=== PATIENT | male | born 1990 | race Caucasian/White ===

== ENCOUNTER 2017-06-15 12:01 | Emergency (ER) | payer OTHER ==
[~2017-06-15] VITALS: Ht 180.3 cm; Wt 70.3 kg
[~2017-06-15 12:01] MED LIST: ALBU.083IS; ALBU.083IS IH; ALBU8HFA2 INH; ALBU90OI; ALBU90OI INH; ALBU90OI6 INH; ALBU90OI61; ALBU90OI61 INH; ALBUIS INH; ALBUTEROL UPDRAFT; AMOX500 PO; AMOX875 PO; ANTOXYBENA OT; AZIT250 PO; Amoxicillin500 MG PO; CEFD300 PO; CEPH500 PO; CIPR500 PO; CODACE30 PO; CODGUAEL PO; CYCL10 PO; DAY TIME COLD-1 EAC1; DOXY100 PO; FLUT110OIA INH; HYDACE5 PO; HYDACE5325 PO; HYDGUAL120 PO; HYDR1TAB94; IBUP600 PO; IBUP800 PO; METO10 PO; MULVITA; NAPR500 PO; NAPR550 PO; NEOPOLHYDS OT; Naprosyn500 MG PO; Norco 5-325 Ta1 EACH PO; ONDA4 PO; OXYACE5T PO; OXYACE7.5T PO; PENVK500 PO; PRED10 PO; PRED20 PO; PROM25 PO; PSEU120ER PO; Percocet 5-3251 EACH PO; Prednisone10 MG PO; RXHYDGUAS PO; RXOXYACE PO; RXPROM25 PO; SPACER IH; SULTRIDS PO; TOBR.3OPSO OP; TRAM50 PO; Ultram50 MG PO; Valium5 MG PO; Veetids 500500 MG PO; Ventolin Soln3 ML; Ventolin/Prove6.7 GM INH; Zofran4 MG PO
[2017-06-15] MEDS ORDERED: AZIT250 PO (13:12)
[2017-06-15] MEDS ORDERED: ALBU90OI INH (13:12)
[2017-06-15] MEDS ORDERED: Prednisone20 MG PO (13:12)
== END 2017-06-15 13:45 | disposition home or self-care (01) ==
LOC: ER 12:01
DX: R05 Cough (principal); J45.909 Unspecified asthma, uncomplicated; F17.200 Nicotine dependence, unspecified, uncomplicated; Z79.899 Other long term (current) drug therapy; Z79.52 Long term (current) use of systemic steroids; Z79.2 Long term (current) use of antibiotics
CPT/HCPCS: 94640; 99283

== ENCOUNTER 2017-06-17 18:41 | Emergency (ER) | payer OTHER ==
[~2017-06-17] VITALS: Ht 180.3 cm; Wt 70.3 kg
[~2017-06-17 18:41] MED LIST changes: +Prednisone20 MG PO
[2017-06-17] MEDS ORDERED: METCAR500 PO (21:28)
== END 2017-06-17 21:39 | disposition home or self-care (01) ==
LOC: ER 18:41
DX: J06.9 Acute upper respiratory infection, unspecified (principal); J98.01 Acute bronchospasm; R07.9 Chest pain, unspecified; M54.9 Dorsalgia, unspecified; F17.200 Nicotine dependence, unspecified, uncomplicated; J45.909 Unspecified asthma, uncomplicated; Z79.899 Other long term (current) drug therapy
CPT/HCPCS: 71046; 96372; 99283; J1885

== ENCOUNTER 2017-07-27 22:01 | Emergency (ER) | payer OTHER ==
[~2017-07-27] VITALS: Ht 180.3 cm; Wt 74.8 kg
[~2017-07-27 22:01] MED LIST changes: +METCAR500 PO
[2017-07-27] MEDS ORDERED: Silvadene20 GM TOP (23:56)
[2017-07-27] MEDS ORDERED: Roxicodone5 MG PO (23:56)
[2017-07-27] MEDS ORDERED: Zofran Odt4 MG PO (23:56)
== END 2017-07-28 01:21 | disposition home or self-care (01) ==
LOC: ER 22:01
DX: T23.251A Burn of second degree of right palm, initial encounter (principal); T23.241A Burn of second degree of multiple right fingers (nail), including thumb, initial encounter; J45.909 Unspecified asthma, uncomplicated; X08.8XXA Exposure to other specified smoke, fire and flames, initial encounter
CPT/HCPCS: 16020; 96374; 96375; 96376; 99284; J1170; J1885; J2405

== ENCOUNTER 2017-07-30 19:13 | Emergency (ER) | payer OTHER ==
[~2017-07-30] VITALS: Ht 180.3 cm; Wt 72.6 kg
[~2017-07-30 19:13] MED LIST changes: +Roxicodone5 MG PO; +Silvadene20 GM TOP; +Zofran Odt4 MG PO
[2017-07-30] MEDS ORDERED: IBUP800 PO (20:32)
[2017-07-30] MEDS ORDERED: Silvadene20 GM TOP (20:32)
[2017-07-30] MEDS ORDERED: Percocet 5-3251 EACH PO (20:32)
== END 2017-07-30 20:55 | disposition home or self-care (01) ==
LOC: ER 19:13
DX: T23.201D Burn of second degree of right hand, unspecified site, subsequent encounter (principal); J45.909 Unspecified asthma, uncomplicated; F17.200 Nicotine dependence, unspecified, uncomplicated; X08.8XXA Exposure to other specified smoke, fire and flames, initial encounter
CPT/HCPCS: 87070; 87077; 87147; 87186; 87205; 99283; J1885

== ENCOUNTER 2017-08-04 08:14 | Day surgery (SDC) | payer OTHER | END 2017-08-04 22:50 | disposition home or self-care (01) | LOC: WOUND 08:14 | DX: Z48.00 Encounter for change or removal of nonsurgical wound dressing (principal); T23.30 Burn of third degree of hand, unspecified site; F17.210 Nicotine dependence, cigarettes, uncomplicated; B95.62 Methicillin resistant Staphylococcus aureus infection as the cause of diseases classified elsewhere; E11.9 Type 2 diabetes mellitus without complications | CPT/HCPCS: G0463 ==

== ENCOUNTER 2018-03-10 12:54 | Emergency (ER) | payer OTHER ==
[~2018-03-10] VITALS: Ht 180.3 cm; Wt 68.0 kg
[2018-03-10 13:15] LABS: Source, Urine Clean Catch
[2018-03-10 13:28] LABS: Bilirubin, Urine Neg (Neg); Blood, Urine Neg (Neg); Glucose Qualitative, Urine Neg (Neg); Ketones, Urine 1+ (Neg); Leukocyte Esterase, Urine 1+ (Neg); Nitrite, Urine Neg (Neg); Protein, Urine 1+ (Neg); Specific Gravity, Urine 1.015 (1.003-1.022); Urobilinogen, Urine 1+ (Normal)
[2018-03-10 13:44] LABS: BASOPHILS ABSOLUTE AUTO 0.07 K/mm3 (0.00-0.23); BASOPHILS PERCENT AUTO 1 % (0-2); EOSINOPHILS ABSOLUTE AUTO 0.01 K/mm3 (0.00-0.68); EOSINOPHILS PERCENT AUTO 0 % (0-6); Hematocrit 49.9 % (37.0-53.0); Hemoglobin 17.5 g/dL (13.5-17.5); IMMATURE GRAN ABSOLUTE AUTO 0.03 K/mm3 (0.00-0.10); IMMATURE GRAN PERCENT AUTO 0 % (0-1); LYMPHOCYTES ABSOLUTE AUTO 1.76 K/mm3 (0.84-5.20); LYMPHOCYTES PERCENT AUTO 16 % (21-46); MONOCYTES ABSOLUTE AUTO 0.68 K/mm3 (0.16-1.47); MONOCYTES PERCENT AUTO 6 % (4-13); Mean Corpuscular HGB 31.7 pg (26.0-34.0); Mean Corpuscular HGB Conc 35.1 g/dL (31.5-36.5); Mean Corpuscular Volume 90 fL (80-100); Mean Platelet Volume 8.7 fL (9.1-12.4); NEUTROPHILS ABSOLUTE AUTO 8.28 K/mm3 (1.96-9.15); NEUTROPHILS PERCENT AUTO 76 % (41-73); Platelet Count 341 K/mm3 (150-400); RDW Standard Deviation 39.6 fL (35.1-46.3); Red Blood Cell Count 5.52 M/mm3 (4.30-5.90); White Blood Cell Count 10.83 K/mm3 (4.00-11.30)
[2018-03-10 13:44] LABS: Appearance, Urine Clear (Clear); Color, Urine Yellow (P-Yellow)
[2018-03-10 13:47] LABS: Bacteria Rare /hpf; Red Blood Cells, Urine Not Seen /hpf (0-2); Squamous Epithelial Cells Not Seen /hpf (Few); White Blood Cells, Urine 0-2 /hpf (0-5)
[2018-03-10 14:06] LABS: Alanine Aminotransfer (ALT/SGP 26 U/L (12-78); Albumin, Blood 4.6 g/dL (3.4-5.0); Albumin/Globulin Ratio 1.2 (0.8-1.8); Alk Phos 76 U/L (50-136); Anion Gap 8 mmol/L (6-16); Aspartate Aminotrans (AST/SGOT 34 U/L (12-37); Bilirubin, Total 0.5 mg/dL (0.1-1.0); Blood Urea Nitrogen 8 mg/dL (8-24); CO2, Blood 27 mmol/L (21-32); Calcium, Blood 9.2 mg/dL (8.5-10.1); Chloride, Blood 101 mmol/L (98-108); Creatinine, Blood 0.72 mg/dL (0.60-1.20); Glomerular Filtration Rate >60 (60-); Glucose, Blood 91 mg/dL (70-99); Potassium, Blood 4.2 mmol/L (3.5-5.5); Sodium, Blood 136 mmol/L (136-145); Total Protein, Blood 8.6 g/dL (6.4-8.2)
[2018-03-10] MEDS ORDERED: PROM25 PO (15:18)
== END 2018-03-10 15:28 | disposition home or self-care (01) ==
LOC: ER 12:54
PROVIDERS: Emergency Medicine
DX: R11.2 Nausea with vomiting, unspecified (principal); R19.7 Diarrhea, unspecified; R10.84 Generalized abdominal pain; J45.909 Unspecified asthma, uncomplicated; F17.200 Nicotine dependence, unspecified, uncomplicated; Z79.51 Long term (current) use of inhaled steroids
CPT/HCPCS: 36415; 80053; 81001; 83690; 85025; 87086; 96374; 96375; 99283-25; J1885; J2405; J2550; J7030

== ENCOUNTER 2018-11-18 23:30 | Emergency (ER) | payer OTHER ==
[~2018-11-18] VITALS: Ht 182.9 cm; Wt 84.8 kg
== END 2018-11-19 00:32 | disposition home or self-care (01) ==
LOC: ER 23:30
DX: S01.81XA Laceration without foreign body of other part of head, initial encounter (principal); Z23 Encounter for immunization; J45.909 Unspecified asthma, uncomplicated; F17.210 Nicotine dependence, cigarettes, uncomplicated; W22.8XXA Striking against or struck by other objects, initial encounter
CPT/HCPCS: 12011; 90471; 90714; 99283-25; A9270-GY

== ENCOUNTER 2019-06-26 12:58 | Emergency (ER) | payer OTHER ==
[~2019-06-26] VITALS: Ht 182.9 cm; Wt 65.8 kg
== END 2019-06-26 16:06 | disposition left against medical advice (07) ==
LOC: ER 12:58
DX: Z53.21 Procedure and treatment not carried out due to patient leaving prior to being seen by health care provider (principal)

== ENCOUNTER 2019-10-25 06:59 | Emergency (ER) | payer OTHER ==
[~2019-10-25] VITALS: Ht 182.9 cm; Wt 63.5 kg
[~2019-10-25 06:59] MED LIST changes: +ALBU2.5V5
== END 2019-10-25 08:52 | disposition home or self-care (01) ==
LOC: ER 06:59
DX: R07.89 Other chest pain (principal); F12.10 Cannabis abuse, uncomplicated; T43.625A Adverse effect of amphetamines, initial encounter; F17.210 Nicotine dependence, cigarettes, uncomplicated; J45.909 Unspecified asthma, uncomplicated
CPT/HCPCS: 36415; 71046; 93005; 93010; 96374; 99285-25; J2060

== ENCOUNTER 2019-12-17 20:36 | Emergency (ER) | payer OTHER ==
[~2019-12-17] VITALS: Ht 180.3 cm; Wt 70.3 kg
[2019-12-17] MEDS ORDERED: KETO10 PO (22:10)
[2019-12-18] MEDS ORDERED: HYDR1TAB94 PO (15:33)
== END 2019-12-17 22:16 | disposition home or self-care (01) ==
LOC: ER 20:36
DX: S93.401A Sprain of unspecified ligament of right ankle, initial encounter (principal); J45.909 Unspecified asthma, uncomplicated; Z79.899 Other long term (current) drug therapy; F17.210 Nicotine dependence, cigarettes, uncomplicated; X50.1XXA Overexertion from prolonged static or awkward postures, initial encounter
CPT/HCPCS: 73610; 96372-59; 99283-25; J1885

== ENCOUNTER → 2022-03-19 | Outpatient (CLI) | payer OTHER ==
[~2022-03-19] MED LIST changes: +CRUTCH3 XX; +HYDR1TAB94 PO; +KETO10 PO
== END | disposition home or self-care (01) ==
LOC: LAB SHORT 17:38 → LAB 17:38
DX: G47.34 Idiopathic sleep related nonobstructive alveolar hypoventilation (principal)
CPT/HCPCS: 85379

== ENCOUNTER 2022-03-22 14:31 | Emergency (ER) | payer OTHER ==
[~2022-03-22] VITALS: Ht 182.9 cm; Wt 68.0 kg
[~2022-03-22 14:31] MED LIST changes: -CRUTCH3 XX
[2022-03-22] MEDS ORDERED: CRUTCH3 XX (16:51)
== END 2022-03-22 17:06 | disposition home or self-care (01) ==
LOC: ER 14:31
DX: S80.02XA Contusion of left knee, initial encounter (principal); F17.210 Nicotine dependence, cigarettes, uncomplicated; V99.XXXA Unspecified transport accident, initial encounter; Z79.899 Other long term (current) drug therapy
CPT/HCPCS: 73590; 96372; 99283-25; J1885

== ENCOUNTER 2022-05-08 14:50 | Emergency (ER) | payer OTHER ==
[~2022-05-08] VITALS: Ht 182.9 cm; Wt 69.0 kg
[~2022-05-08 14:50] MED LIST changes: +CRUTCH3 XX
[2022-05-08 16:16] LABS: Influenza B, PCR NEGATIVE (NEGATIVE); Resp Syncytial Virus, PCR NEGATIVE (NEGATIVE); SARS-Cov-2 (COVID-19) PCR, MMC NEGATIVE (NEGATIVE)
[2022-05-08 16:17] LABS: Influenza A, PCR POSITIVE (NEGATIVE)
[2022-05-08] MEDS ORDERED: ONDA4ODT MM (16:32)
[2022-05-08] MEDS ORDERED: KETO10 PO (16:32)
== END 2022-05-08 16:43 | disposition home or self-care (01) ==
LOC: ER 14:50
PROVIDERS: Physician Assistant
DX: J10.1 Influenza due to other identified influenza virus with other respiratory manifestations (principal); J45.909 Unspecified asthma, uncomplicated; F17.210 Nicotine dependence, cigarettes, uncomplicated; Z20.822 Contact with and (suspected) exposure to COVID-19; Z79.899 Other long term (current) drug therapy
CPT/HCPCS: 0241U

== ENCOUNTER 2023-07-19 09:30 | Observation (INO) | payer OTHER ==
[~2023-07-19] VITALS: Ht 182.9 cm; Wt 68.0 kg
[~2023-07-19 09:30] MED LIST changes: +ONDA4ODT MM
[2023-07-19] MEDS ORDERED: Roxicodone5 MG PO (10:26)
[2023-07-19] MEDS ORDERED: HyDROXyzine HCl 25 MG Tab PO PRN (10:30)
[2023-07-19] MEDS ORDERED: buprenorphine HCL 2 MG TAB.SUBL SL SCH ×2 (10:30→21:00)
[2023-07-19] MEDS ORDERED: SUBOXONE 8 MG-1 EACH SL (10:52)
[2023-07-19] MEDS ORDERED: CATAPRES0.1 MG PO (10:57)
[2023-07-19] MEDS ORDERED: GABA300 (10:57)
[2023-07-19] MEDS ORDERED: ONDA4ODT MM (10:57)
[2023-07-19] MEDS ORDERED: ALBU90OI INH (10:58)
[2023-07-19 11:11] LABS: BASOPHILS ABSOLUTE AUTO 0.06 K/mm3 (0.00-0.23); BASOPHILS PERCENT AUTO 1 % (0-2); EOSINOPHILS ABSOLUTE AUTO 0.03 K/mm3 (0.00-0.68); EOSINOPHILS PERCENT AUTO 1 % (0-6); Hematocrit 40.6 % (37.0-53.0); Hemoglobin 14.3 g/dL (13.5-17.5); IMMATURE GRAN ABSOLUTE AUTO 0.02 K/mm3 (0.00-0.10); IMMATURE GRAN PERCENT AUTO 0 % (0-1); LYMPHOCYTES ABSOLUTE AUTO 1.48 K/mm3 (0.84-5.20); LYMPHOCYTES PERCENT AUTO 23 % (21-46); MONOCYTES ABSOLUTE AUTO 0.38 K/mm3 (0.16-1.47); MONOCYTES PERCENT AUTO 6 % (4-13); Mean Corpuscular HGB 30.8 pg (26.0-34.0); Mean Corpuscular HGB Conc 35.2 g/dL (31.5-36.5); Mean Corpuscular Volume 88 fL (80-100); NEUTROPHILS ABSOLUTE AUTO 4.59 K/mm3 (1.96-9.15); NEUTROPHILS PERCENT AUTO 70 % (41-73); Platelet Count 305 K/mm3 (150-400); RDW Standard Deviation 38.9 fL (35.1-46.3); Red Blood Cell Count 4.64 M/mm3 (4.30-5.90); White Blood Cell Count 6.56 K/mm3 (4.00-11.30)
[2023-07-19 11:28] LABS: Ethanol (Alcohol), Blood, Med <3 mg/dL; Salicylate <1.7 mg/dL (2.8-20.0)
[2023-07-19 11:33] LABS: Alanine Aminotransfer (ALT/SGP 32 U/L (12-78); Albumin, Blood 4.6 g/dL (3.4-5.0); Albumin/Globulin Ratio 1.5 (0.8-1.8); Alk Phos 66 U/L (50-136); Anion Gap 1 mmol/L (6-16); Aspartate Aminotrans (AST/SGOT 27 U/L (12-37); Bilirubin, Total 0.4 mg/dL (0.1-1.0); Blood Urea Nitrogen 8 mg/dL (8-24); Bun/Creatinine Ratio 10.8 (12.0-20.0); CO2, Blood 30 mmol/L (21-32); Calcium, Blood 9.5 mg/dL (8.5-10.1); Chloride, Blood 105 mmol/L (98-108); Creatinine, Blood 0.74 mg/dL (0.60-1.20); Globulin, Blood 3.1 g/dL (2.2-4.0); Glomerular Filtration Rate 123 (60-); Glucose, Blood 109 mg/dL (70-99); Potassium, Blood 4.1 mmol/L (3.5-5.5); Sodium, Blood 136 mmol/L (136-145); Total Protein, Blood 7.7 g/dL (6.4-8.2)
[2023-07-19 11:34] LABS: Acetaminophen, Random <2.0 ug/mL (10.0-30.0)
[2023-07-19] MEDS ORDERED: Nicotine 21 MG PATCH TOP SCH (11:50)
[2023-07-19] MEDS ORDERED: LORazepam 1 MG Tab PO ONE (11:55)
[2023-07-19] MEDS ORDERED: QUEtiapine Fumarate 100 MG Tab PO ONE (11:55)
[2023-07-19] MEDS ORDERED: QUEtiapine Fumarate 200 MG Tab PO SCH (21:00)
[2023-07-20 09:06] LABS: Source, Urine Clean Catch
[2023-07-20 09:10] LABS: Appearance, Urine Hazy (Clear); Bilirubin, Urine Neg (Neg); Blood, Urine Neg (Neg); Color, Urine Yellow (P-Yellow); Glucose Qualitative, Urine Neg (Neg); Ketones, Urine Neg (Neg); Leukocyte Esterase, Urine 2+ (Neg); Nitrite, Urine Neg (Neg); Protein, Urine Neg (Neg); Urobilinogen, Urine NORM (Normal)
[2023-07-20] MEDS ORDERED: LORazepam 1 MG Tab PO ONE (09:15)
[2023-07-20 09:22] LABS: Bacteria Few /hpf; Red Blood Cells, Urine 0-2 /hpf (0-2)
[2023-07-20 09:23] LABS: Mucus Mod (0-Heavy); Squamous Epithelial Cells Few /hpf (Few)
[2023-07-20 09:36] LABS: U Amphetamine Screen Not Detected; U Barbituate Screen Not Detected; U Benzodiazapine Screen DETECTED; U Buprenorphine Screen DETECTED; U Cannabinoids Screen DETECTED; U Cocaine Screen Not Detected; U Methadone Screen Not Detected; U Methamphetamine Screen Not Detected; U Opiates Screen Not Detected; U Oxycodone Screen Not Detected; U Phencyclidine Screen Not Detected
[2023-07-20] MEDS ORDERED: buprenorphine HCL 2 MG TAB.SUBL SL ONE (20:45)
[2023-07-20] MEDS ORDERED: Nicotine 21 MG PATCH TOP ONE (20:55)
[2023-07-20] MEDS ORDERED: QUEtiapine Fumarate 300 MG Tab PO SCH (21:00)
[2023-07-21] MEDS ORDERED: buprenorphine HCL 2 MG TAB.SUBL SL SCH (09:00)
[2023-07-21] MEDS ORDERED: HydrOXYzine Pamoate 25 MG Cap PO PRN (10:05)
[2023-07-21] MEDS ORDERED: Nicotine Polacrilex 2 MG Gum PO ONE (22:45)
[2023-07-22 08:55] VITALS: BP 112/70
[2023-07-22] MEDS ORDERED: HYDPAM25 PO (09:01)
[2023-07-22] MEDS ORDERED: QUET300 PO (09:01)
== END 2023-07-22 09:55 | disposition home or self-care (01) ==
LOC: ER 09:30 → EOR 09:31
PROVIDERS: Physician Assistant; ADMIT Emergency Medicine
DX: F31.81 Bipolar II disorder (principal); F17.210 Nicotine dependence, cigarettes, uncomplicated; J45.909 Unspecified asthma, uncomplicated; Z79.899 Other long term (current) drug therapy
CPT/HCPCS: 80053; 81001; 85025; 87086; 99285; A9270; G0378; G0480; Q0177